=== PATIENT | male | born 1995 | race Two or more races ===

== ENCOUNTER 2017-01-03 01:30 | Emergency (ER) | payer OTHER ==
[2017-01-03 01:37] VITALS: O2SAT 97
[2017-01-03] MEDS ORDERED: PROPARACAINE 0.5% 15 ML OPHT DROP EACHEYE ONE (01:44)
[2017-01-03] MEDS ORDERED: FLUORESCEIN SODIUM 1 MG STRIP OP ONE ×2 (01:44→01:45)
[2017-01-03] MEDS ORDERED: PROPARACAINE 0.5% 15 ML OPHT DROP ONE (01:45)
--- NOTE | 2017-01-03 02:18 | EDPHY ---
H & P Stated Complaint: right eye burning HPI/ROS: HPI CHIEF COMPLAINT: Right eye pain HISTORY OF PRESENT ILLNESS: Patient very pleasant 21-year-old male otherwise healthy no significant medical history or surgical history presents emergency room with right eye pain. States he developed this about 6 hours ago. He was driving from [place] to [place], pain progressively got worse. He was wearing contacts earlier he has not worn contacts and a long time. He took the contacts out as he developed pain. Denies any trauma. He has photosensitivity. Eye tearing and pain. Only out of his right eye. Denies direct trauma. Past Medical History: No significant medical history Past Surgical History: No significant surgical history Social History: Denies daily use drugs alcohol tobacco products lives in [place]. Family History: Noncontributory. ROS REVIEW OF SYSTEMS: A comprehensive 10 point review of systems is otherwise negative aside from elements mentioned in the history of present illness. Exam Constitutional triage nursing summary reviewed, vital signs reviewed, awake/ alert. Eyes right eye: Proparacaine was used and this greatly improved his eye pain. His conjunctiva is injected. Pupil equal round react to light. Extraocular movements intact. He has a linear corneal abrasion at the 6 o'clock position on his cornea. There is no Anna sign. No foreign body visualized. Lids everted no foreign body seen. The streak is horizontal not linear. There is only 1 present. Left eye is normal. Visual acuity reviewed. There is uptake of the floor seen at the 6 o'clock position. HENT normal inspection, atraumatic, moist mucus membranes, no epistaxis, neck supple/ no meningismus, no raccoon eyes. Respiratory clear to auscultation bilaterally, normal breath sounds, no respiratory distress, no wheezing. Cardiovascular rate normal, regular rhythm, no murmur, no edema, distal pulses normal. Gastrointestinal soft, non-tender, no rebound, no guarding, normal bowel sounds, no distension, no pulsatile mass. Genitourinary no CVA tenderness. Musculoskeletal no midline vertebral tenderness, full range of motion, no calf swelling, no tenderness of extremities, no meningismus, good pulses, neurovascularly intact. Skin pink, warm, & dry, no rash, skin atraumatic. Neurologic awake, alert and oriented x 3, AAOx3, moves all 4 extremities equally, motor intact, sensory intact, CN II-XII intact, normal cerebellar, normal vision, normal speech. Psychiatric normal mood/affect. Heme/Lymph/Immune no lymphadenopathy. Differential Diagnosis: Includes but is not limited to in a particular order corneal tear, corneal abrasion, corneal ulcer, foreign body Medical Decision Making: Plan for this patient antibiotic eyedrops, cool compresses, ibuprofen for pain. And ophthalmology follow-up tomorrow. I explained the patient should not rub his eye. Do not wears contacts. Use antibiotic eyedrops. Ibuprofen for pain control cool compresses and must be seen by the fine hairer tomorrow. He understands. He understands the fine hairer is in [place]. He resides in [place]. I still recommend that he sees fine hairer here tomorrow for eye care. Re-evaluation: Ibuprofen, erythromycin. Ophthalmology follow-up. Source: Patient - Personal History Current Tetanus/Diphtheria Vaccine: Yes - Medical/Surgical History Hx Asthma: No Hx Chronic Respiratory Disease: No Hx Diabetes: No Hx Cardiac Disease: No Hx Renal Disease: No Hx Cirrhosis: No Hx Alcoholism: No Hx HIV/AIDS: No Hx Splenectomy or Spleen Trauma: No - Social History Smoking Status: Never smoked Constitutional: Initial Vital Signs Heart Rate 96 01/03/17 01:33 Respiratory Rate 20 01/03/17 01:33 O2 Sat (%) 97 01/03/17 01:33 O2 Delivery Mode Room Air Home Medications: Medication Instructions Recorded NK [No Known Home Meds] 01/03/17 Medical Decision Making - Data Points Medications Given: Discontinued Medications Fluorescein Sodium ([id number]) 1 mg OP EDNOW ONE Stop: 01/03/17 01:45 Last Admin: 01/03/17 02:16 Dose: 1 mg Proparacaine HCl (Alcaine 0.5%) 1 drops EACHEYE ONCE ONE Stop: 01/03/17 01:45 Last Admin: 01/03/17 02:16 Dose: 2 drops Departure - Departure Disposition: Home, Routine, Self-Care Clinical Impression: Corneal abrasion Qualifiers: Encounter type: initial encounter Laterality: right Qualified Code(s): S05.01XA - Injury of conjunctiva and corneal abrasion without foreign body, right eye, initial encounter Condition: Good Instructions: Corneal Abrasion (ED) Additional Instructions: 1. Cool compresses. 2. Do not rub your eye. 3. You need to see Ophthalmology tomorrow. 4. Ibuprofen for pain. 5. [place] for severe pain 6. Antibiotic ointment. Referrals: NONE *PRIMARY CARE P,. [Primary Care Provider] - As per Instructions Ever Schmid MD [Medical Doctor] - As per Instructions
[2017-01-03] MEDS ORDERED: IBUPROFEN 200 MG TAB PO ONE (02:29)
[2017-01-03] MEDS ORDERED: ERYTHROMYCIN 0.5% 1 GM OPHT.OINT RTEYE ONE (02:29)
[2017-01-03 03:02] VITALS: BP 114/59; PULSE 83; RESP 16; TEMP 97.9
== END 2017-01-03 03:02 | disposition home or self-care (01) ==
DX: H18.821 Corneal disorder due to contact lens, right eye (principal)